=== PATIENT | male | born 1990 | race Hispanic/Latino ===

== ENCOUNTER 2017-01-12 16:30 | Emergency (ER) | payer OTHER ==
[2017-01-12] MEDS ORDERED: MOTRIN PO ONE (19:15)
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
--- NOTE | 2017-01-12 20:11 | Cat Scan Report ---
FINAL REPORT EXAM: CT CHEST WO CON HISTORY: ? rib fractures left side COMPARISON: None available. TECHNIQUE: Contiguous axial images were obtained. Additional sagittal and coronal reformatted images were obtained. FINDINGS: Heart normal in size. Thoracic aorta normal in caliber. No pneumothorax or pneumomediastinum. Tracheobronchial tree is patent. No focal consolidation or pleural effusion. Thoracic vertebral body heights are preserved. The sternum is intact. Bilateral ribs are grossly intact. No displaced fractures. Visualized upper abdomen is unremarkable. IMPRESSION: No gross acute intrathoracic injury. Bilateral ribs are grossly intact.
[2017-01-12 23:18] VITALS: BP 120/75
== END 2017-01-12 20:50 | disposition home or self-care (01) ==
LOC: ED 16:30
DX: S20.212A Contusion of left front wall of thorax, initial encounter (principal); F17.200 Nicotine dependence, unspecified, uncomplicated; V89.2XXA Person injured in unspecified motor-vehicle accident, traffic, initial encounter; Y93.89 Activity, other specified; Y99.8 Other external cause status; Y92.488 Other paved roadways as the place of occurrence of the external cause
CPT/HCPCS: 71250

== ENCOUNTER 2017-03-16 06:23 | Emergency (ER) | payer SELFPAY ==
[2017-03-16 08:20] VITALS: BP 114/65
[2017-03-16 08:56] LABS: Basophils % (Auto) 0.3 % (0.0-1.8); Eosinophils % (Auto) 1.3 % (0.0-4.3); Hematocrit 42.2 % (35.5-45.6); Mean Corpuscular HGB Conc 33 % (32-34); Mean Corpuscular Hemoglobin 29 pg (28-32); Mean Corpuscular Volume 88 fl (84-94); Platelet Count 212 K/mm3 (140-440); Red Blood Count 4.79 M/mm3 (3.65-5.03); Red Cell Distribution Width 14.2 % (13.2-15.2)
[2017-03-16 08:59] LABS: Anion Gap 14 mmol/L; Blood Urea Nitrogen 19 mg/dL (9-20); Calcium 8.8 mg/dL (8.4-10.2); Carbon Dioxide 29 mmol/L (22-30); Chloride 97.9 mmol/L (98-107); Glucose 104 mg/dL (75-100); Potassium 4.1 mmol/L (3.6-5.0); Sodium 137 mmol/L (137-145)
[2017-03-16] MEDS ORDERED: MOTRIN PO ONE (09:06)
[2017-03-16 09:28] LABS: Urine Drugs of Abuse Note Disclamer
[2017-03-16 09:36] LABS: Bilirubin,Urine NEG (Negative); Blood,Urine NEG (Negative); Ketones,Urine NEG (Negative); Leukocyte Esterase,Urine NEG (Negative); Mucus,Urine 1+ /HPF; Nitrite,Urine NEG (Negative); Protein,Urine <15 mg/dL mg/dL (Negative)
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
--- NOTE | 2017-03-16 09:57 | XRay Report ---
LEFT FOREARM: History: Left forearm pain. AP and lateral views of the forearm demonstrate normal mineralization and contours for this patient's age. No destructive changes are noted and the adjacent soft tissues are normal. IMPRESSION: Normal left forearm.
--- NOTE | 2017-03-16 09:58 | XRay Report ---
LEFT WRIST, 2 views: HISTORY: Left wrist pain. Slightly limited nonstandard views. No acute osseous abnormality or joint pathology is appreciated. The soft tissues are unremarkable. IMPRESSION: Left wrist within normal limits.
== END 2017-03-16 10:27 | disposition home or self-care (01) ==
LOC: ED 06:23
DX: S49.92XA Unspecified injury of left shoulder and upper arm, initial encounter (principal); F17.200 Nicotine dependence, unspecified, uncomplicated; W19.XXXA Unspecified fall, initial encounter; Y93.89 Activity, other specified; Y99.9 Unspecified external cause status; Y92.89 Other specified places as the place of occurrence of the external cause
CPT/HCPCS: 36415; 80048; 80307; 81001; 85025

== ENCOUNTER 2017-03-26 19:22 | Emergency (ER) | payer SELFPAY ==
[2017-03-26 19:32] VITALS: BP 119/77
[2017-03-26] MEDS ORDERED: NORCO 5/325 ONE (20:07)
[2017-03-26] MEDS ORDERED: NORCO 5/325 PO ONE ×2 (20:09→20:18)
[2017-03-26] MEDS ORDERED: CLEOCIN IM ONE (20:17)
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
[2017-03-26 21:09] LABS: Basophils % (Auto) 0.1 % (0.0-1.8); Eosinophils % (Auto) 1.3 % (0.0-4.3); Hematocrit 42.1 % (35.5-45.6); Hemoglobin 13.7 gm/dl (11.8-15.2); Mean Corpuscular HGB Conc 33 % (32-34); Mean Corpuscular Hemoglobin 29 pg (28-32); Mean Corpuscular Volume 88 fl (84-94); Platelet Count 220 K/mm3 (140-440); Red Blood Count 4.79 M/mm3 (3.65-5.03); White Blood Count 14.2 K/mm3 (4.5-11.0)
[2017-03-26 21:15] LABS: Alanine Aminotransferase 16 units/L (7-56); Albumin 3.3 g/dL (3.9-5); Alkaline Phosphatase 60 units/L (35-129); Anion Gap 15 mmol/L; BUN/Creatinine Ratio 16.25; Blood Urea Nitrogen 13 mg/dL (9-20); Calcium 8.5 mg/dL (8.4-10.2); Carbon Dioxide 30 mmol/L (22-30); Chloride 99.6 mmol/L (98-107); Glucose 87 mg/dL (75-100); Potassium 3.9 mmol/L (3.6-5.0); Sodium 141 mmol/L (137-145); Total Protein 6.6 g/dL (6.3-8.2)
[2017-03-26] MEDS ORDERED: XYLOCAINE 1% 20 mL INFILTRATI ONE (21:28)
== END 2017-03-26 22:05 | disposition home or self-care (01) ==
LOC: ED 19:22
DX: L02.413 Cutaneous abscess of right upper limb (principal); F17.200 Nicotine dependence, unspecified, uncomplicated; F12.10 Cannabis abuse, uncomplicated
CPT/HCPCS: 36415; 80053; 85025; 96372